=== PATIENT | male | born 1965 | race Caucasian/White ===

== ENCOUNTER → 2017-08-24 | Outpatient (CLI) | payer BC ==
--- NOTE | 2017-08-24 14:22 | DIAGNOSTIC IMAGING REPORT ---
KUB CLINICAL HISTORY: 51 years-old Male presenting with N23 left-sided flank pain with history of renal calculi. TECHNIQUE: Single supine view of the abdomen was obtained. COMPARISON: None. FINDINGS: Normal bowel gas pattern. No evidence of free intraperitoneal gas, pneumatosis, or portal venous gas. Allowing for the presence of bowel gas and stool, no radiographic evidence of renal calculi. No calcifications along the courses of the ureters. Right pelvic phlebolith noted. Degenerative changes at T12-L1 and L5-S1. IMPRESSION: 1. No radiographic evidence of renal calculi. Electronically signed by: Ramsey Cruz M.D. 08/24/2017 2:21 PM Dictated Date/Time: 08/24/2017 2:19 PM
== END | disposition home or self-care (01) ==
LOC: C.RAD1850 13:52
PROVIDERS: ATTEND Family Medicine
DX: N23 Unspecified renal colic (principal)